=== PATIENT | male | born 1990 | race Hispanic/Latino ===

== ENCOUNTER 2017-01-15 08:55 | Emergency (ER) | payer SELFPAY ==
[2017-01-15 09:02] VITALS: BMI 42.5
[2017-01-15 09:05] VITALS: BP 151/82; PULSE 75; RESP 18; TEMP 97.7; O2SAT 97
--- NOTE | 2017-01-15 09:31 | ED PDOC ---
Arrival/HPI - General Historian: Patient - History of Present Illness Time/Duration: Prior to Arrival, 1/2 hour Symptom Onset: Sudden Symptom Course: Resolved Quality: Tightness, Cramping Severity Level: 7 Activities at Onset: Light Context: Work - General Chief Complaint: Back Pain Time Seen by Provider: 01/15/17 09:03 - History of Present Illness Narrative History of Present Illness (Text): 01/15/17 09:34 Mr. 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 Patient states that he awoke this morning "feeling great" and went to work at [employer]. After completing his normal activities he began to feel an aching back pain from his shoulders to his mid back with no radiation and then subsequently developed SOB and lightheadedness. Patient reports that this lasted for several minutes but that all of these symptoms resolved with rest. He denies any recent surgery/ trauma, recent travel, sick contacts, history of DVT/PE, headache, changes in his vision, sore throat, dysphagia, chest pain, palpitations, SOB, cough, hemoptysis, abdominal pain, N/V, diarrhea, constipation, bowel incontinence, pain/burning with urination, bladder incontinence, urinary retention, rash, numbness/tingling/weakness of any extremity, neck pain, or back pain. (Mario Davis) Past Medical History - Provider Review Nursing Documentation Reviewed: Yes - Travel History Have you recently traveled outside [place] w/in the past 3 mons?: No - Past History Past History: Non-Contributing - Infectious Disease Hx of Infectious Diseases: None - Tetanus Immunization Tetanus Immunization: Unknown - Pulmonary Hx Respiratory Disorders: Yes Hx Asthma: Yes - Psychiatric Hx Substance Use: No - Anesthesia Hx Anesthesia: No Family/Social History - Physician Review Nursing Documentation Reviewed: Yes Family/Social History: No Known Family HX. denies: Diabetes, Hypertension, CAD/ [place], Blood Clots, Neoplasm/Cancer Smoking Status: Never Smoked Hx Alcohol Use: No Hx Substance Use: No Allergies/Home Meds Allergies/Adverse Reactions: Allergies cat dander Allergy (Verified 01/15/17 09:03) SHORTNESS OF BREATH Review of Systems - Physician Review All systems were reviewed & negative as marked: Yes - Review of Systems Constitutional: Normal. absent: Fevers, Night Sweats Eyes: Normal. absent: Vision Changes ENT: Normal Respiratory: Normal. absent: SOB, Cough, Wheezing Cardiovascular: Normal. absent: Chest Pain, Palpitations Gastrointestinal: Normal. absent: Abdominal Pain, Stool Changes, Diarrhea, Nausea, Vomiting Genitourinary Male: Normal. absent: Dysuria, Urinary Output Changes Musculoskeletal: Normal. absent: Arthralgias, Back Pain, Neck Pain, Myalgias Skin: Normal. absent: Rash Neurological: Normal. absent: Headache, Dizziness, Focal Weakness, Gait Changes Endocrine: Normal Hemo/Lymphatic: Normal Psychiatric: Normal Physical Exam Vital Signs Reviewed: Yes Temperature: Afebrile Blood Pressure: Normal Pulse: Regular Respiratory Rate: Normal Appearance: Positive for: Well-Appearing, Non-Toxic, Comfortable Pain Distress: None Mental Status: Positive for: Alert and Oriented X 3 - Systems Exam Head: Present: Atraumatic, Normocephalic Pupils: Present: PERRL Extroacular Muscles: Present: EOMI Conjunctiva: Present: Normal Mouth: Present: Moist Mucous Membranes Pharnyx: Present: Normal. No: ERYTHEMA, EXUDATE, TONSILS ENLARGED Nose (External): Present: Atraumatic, Abrasion Nose (Internal): Present: Normal Inspection Neck: Present: Normal Range of Motion. No: Meningeal Signs, MIDLINE TENDERNESS , Paraspinal Tenderness, JVD, Lymphadenopathy Respiratory/Chest: Present: Clear to Auscultation, Good Air Exchange. No: Respiratory Distress, Accessory Muscle Use, Wheezes, Decreased Breath Sounds, Rales, Retracting, Rhonchi, Tachypneic, Tender to Palpation Cardiovascular: Present: Regular Rate and Rhythm, Normal S1, S2. No: Murmurs Abdomen: Present: Normal Bowel Sounds. No: Tenderness, Distention, Peritoneal Signs Back: Present: Normal Inspection. No: CVA Tenderness, Midline Tenderness, Paraspinal Tenderness, Pain with Leg Raise, Decubitus Ulcer Upper Extremity: Present: Normal Inspection, Normal ROM, NORMAL PULSES, Neurovascularly Intact, Capillary Refill < 2s, Norm 2-Pt Discrimination. No: Cyanosis, Edema, Tenderness, Swelling, Temperature Abnormalties Lower Extremity: Present: Normal Inspection, NORMAL PULSES, Normal ROM, Neurovascularly Intact, Capillary Refill < 2 s. No: Edema, CALF TENDERNESS, Cyanosis, Tiffanie's Sign, Tenderness, Swelling, Erythema, Deformity, Temperature Abnormalties Neurological: Present: GCS=15, CN II-XII Intact, Speech Normal, Motor Func Grossly Intact, Gait Normal Skin: Present: Warm, Dry, Normal Color. 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 26 y/o M p/w episode of back pain, lightheadedness, and shortness of breath, which is now gone and patient feels completely normal. On exam, clear lungs, no midline or perispinal tenderness. ( Hugo Mariee) Disposition/Present on Arrival - Present on Arrival Any Indicators Present on Arrival: No History of DVT/PE: No History of Uncontrolled Diabetes: No Urinary Catheter: No History of Decub. Ulcer: No History Surgical Site Infection Following: None - Disposition Have Diagnosis and Disposition been Completed?: Yes Disposition Time: 09:55 - Disposition Diagnosis: Back pain Disposition: HOME/ ROUTINE Condition: GOOD Discharge Instructions (ExitCare): Back Pain (ED), Back Exercises (ED) Additional Instructions: Mr. Chanbon, thank you for letting us take care of you today. Your provider was Dr. Mariee. You were treated for back pain. The emergency medical care you received today was directed at your acute symptoms. If you were prescribed any medication, please fill it and take as directed. It may take several days for your symptoms to resolve. Return to the Emergency Department if your symptoms worsen, do not improve, or if you have any other problems. Please contact your doctor or call one of the physicians/clinics you have been referred to that are listed on the Patient Visit Information form that is included in your discharge packet. Bring any paperwork you were given at discharge with you along with any medications you are taking to your follow up visit. Our treatment cannot replace ongoing medical care by a primary care provider (PCP) outside of the emergency department. Thank you for allowing the [facility] team to be part of your care today. Forms: eigital (Salvadorean), WORK NOTE
== END 2017-01-15 10:12 | disposition home or self-care (01) ==
LOC: ED 08:55
DX: M54.9 Dorsalgia, unspecified (principal)